=== PATIENT | female | born 1935 | race Caucasian/White ===

== ENCOUNTER 2017-03-25 13:00 | Outpatient (CLI) | payer MEDICARE, OTHER | END 2017-03-25 13:02 | LOC: LAB 13:00 | PROVIDERS: ATTEND Internal Medicine Cardiovascular Disease | DX: E03.9 Hypothyroidism, unspecified (principal) | CPT/HCPCS: 36415; 84439; 84443 ==

== ENCOUNTER 2017-05-17 14:45 | Outpatient (CLI) | payer MEDICARE, OTHER | END 2017-05-17 14:47 | LOC: LAB 14:45 | PROVIDERS: ATTEND Internal Medicine Cardiovascular Disease | DX: E03.9 Hypothyroidism, unspecified (principal) | CPT/HCPCS: 36415; 84439; 84443 ==

== ENCOUNTER 2018-03-14 09:43 | Outpatient (CLI) | payer MEDICARE, OTHER ==
[2018-03-14 10:45] LABS: eGFR (African) > 60; eGFR (Non-African) > 60
== END 2018-03-14 10:48 ==
LOC: LAB 09:43
PROVIDERS: ATTEND Family Medicine
DX: E11.9 Type 2 diabetes mellitus without complications (principal); E03.9 Hypothyroidism, unspecified
CPT/HCPCS: 36415; 80053; 80061; 82043; 83036; 84443

== ENCOUNTER 2018-04-14 10:04 | Outpatient (CLI) | payer MEDICARE, OTHER | END 2018-04-14 10:06 | LOC: LAB 10:04 | PROVIDERS: ATTEND Family Medicine | DX: E03.9 Hypothyroidism, unspecified (principal) | CPT/HCPCS: 36415; 84443 ==

== ENCOUNTER 2019-04-26 09:30 | Outpatient (CLI) | payer MEDICARE, BC ==
[2019-04-26 10:47] LABS: eGFR (Non-African) 42
[2019-04-26 10:48] LABS: HDL 37 mg/dL (>40)
== END 2019-04-26 09:33 ==
LOC: LAB 09:30
PROVIDERS: ATTEND Family Medicine
DX: E78.5 Hyperlipidemia, unspecified (principal)
CPT/HCPCS: 36415; 80053; 80061